=== PATIENT | male | born 1990 | race Two or more races ===

== ENCOUNTER 2016-12-14 08:36 | Emergency (ER) | payer OTHER ==
[2016-12-14 08:51] VITALS: BP 132/82; PULSE 94; RESP 16; TEMP 98.1; O2SAT 95
[2016-12-14] MEDS ORDERED: PROPARACAINE 0.5% 15 ML OPHT DROP LEFTEYE ONE (08:52)
--- NOTE | 2016-12-14 09:16 | EDPHY ---
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 He reports mild irritation but no change in his vision. He rinse eye with water in an attempt to remove perceived foreign body without change in his symptoms. He reports the discomfort as mild in intensity. ROS: HEENT: No right eye symptoms. Again no visual blurring. Integumentary: No skin lacerations her other complaints 5 point ROS is otherwise negative. Smoking Status: Unknown if ever smoked Physical Exam: Physical Exam Vital signs are normal. General: No acute distress HEENT: Atraumatic. Eyes: Pupils equal and react to light. Extraocular motions are intact. Patient has mild conjunctival injection left eye on slit-lamp exam after proparacaine anesthesia with relief of his discomfort -corneal exam with fluorescein reveals superficial corneal abrasion-several vertically-oriented horizontal abrasions to the superior 1/3 of the left cornea without associated edema. No foreign body to the cornea is appreciated. No hyphema. Lids and lashes exam with eversion of the eyelid reveals a small metallic foreign body to the underside of the upper eyelid. Right eye exam is normal. Visual acuity is reviewed as documented in nursing sheet-20/20 right eye, 2014 os Cardiac: Brisk capillary refill is intact throughout. Skin: No lacerations or abrasions Neuro: Alert Constitutional: Initial Vital Signs Temperature (C) 36.7 C 12/14/16 08:49 Heart Rate 94 12/14/16 08:49 Respiratory Rate 16 12/14/16 08:49 Blood Pressure 132/82 H 12/14/16 08:49 O2 Sat (%) 95 12/14/16 08:49 O2 Delivery Mode Room Air Allergies/Adverse Reactions: vancomycin Allergy (Verified 12/14/16 08:51) Home Medications: Medication Instructions Recorded Ibuprofen [Motrin (*)] 600 mg PO Q6 PRN #30 tab 12/14/16 Ofloxacin 0.3% [Ocuflox 0.3% (RX)] 2 drops Q6 #1 btl 12/14/16 MDM/Departure - [facility] Procedures: Foreign body removal: After verbal consent, proparacaine anesthesia with good effect I used the background Q-tip is a shaft and everted his upper eyelid discovering a small metallic foreign body approximately 1.5 mm in size adherent to the underside of the eyelid that is easily remove with moist in Decadron Q- tip. Patient tolerated the procedure well without complications. Eversion of the lower eyelid revealed no foreign bodies Medications Given: Discontinued Medications Proparacaine HCl (Alcaine 0.5%) 1 drops LEFTEYE ONCE ONE Stop: 12/14/16 08:53 Last Admin: 12/14/16 08:56 Dose: 2 drop ED Course/Re-evaluation: Discussion: Metallic foreign body to underside of eyelid because a superficial corneal abrasion. He has no significant corneal edema and no loss of visual acuity associated with this. Think that he is safe to return to work counseled he and his salvage supervisor regarding this. Cover with antibiotic drops, ibuprofen as analgesia and recommended work comp follow-up and 4-5 days. - Depart Disposition: Home, Routine, Self-Care Clinical Impression: Corneal abrasion Qualifiers: Encounter type: initial encounter Laterality: left Qualified Code(s): S05.02XA - Injury of conjunctiva and corneal abrasion without foreign body, left eye, initial encounter Foreign body in eye Qualifiers: Encounter type: initial encounter Laterality: left Qualified Code(s): T15.92XA - Foreign body on external eye, part unspecified, left eye, initial encounter Clinical Impression: (Ruled Out): Corneal FB (foreign body) Condition: Good Instructions: Corneal Abrasion (ED) Additional Instructions: Diagnosis: 1. Foreign body to eye-removed 2. Left corneal abrasion Plan: Antibiotic drops as prescribed for the next week Ibuprofen-600 mg per 6 hours as needed for pain Tylenol in addition if needed for pain Your vision is still better than normal. It is okay to work as tolerated provided you do not develop any blurring of your vision Follow up with work comp in 4-5 days for a recheck. Return here for any significant worsening despite treatment plan. Prescriptions: Ibuprofen [Motrin (*)] 600 mg PO Q6 PRN #30 tab PRN Reason: Pain Ofloxacin 0.3% [Ocuflox 0.3% (RX)] 2 drops Q6 #1 btl Referrals: NONE *PRIMARY CARE P,. [Primary Care Provider] - As per Instructions Jamia Kapoor MD [Medical Doctor] - As per Instructions
[2016-12-14] MEDS ORDERED: TDAP ADULT 0.5 ML INJ (BOOSTRIX) IM ONE (09:25)
== END 2016-12-14 09:36 | disposition home or self-care (01) ==
LOC: CED 08:36
PROC: 08C1XZZ Extirpation of Matter from Left Eye, External Approach (ICD-10-PCS; principal; 2016-12-14)
DX: T15.92XA Foreign body on external eye, part unspecified, left eye, initial encounter (principal); S05.02XA Injury of conjunctiva and corneal abrasion without foreign body, left eye, initial encounter; Z23 Encounter for immunization; W31.1XXA Contact with metalworking machines, initial encounter; Y92.69 Other specified industrial and construction area as the place of occurrence of the external cause